=== PATIENT | female | born 1980 | race Two or more races ===

== ENCOUNTER 2023-07-05 04:04 | Inpatient (IN) | payer OTHER ==
[2023-07-04 09:17] VITALS: BMI 30.2
[2023-07-05] MEDS ORDERED: SUGAMMADEX SODIUM 200 MG/2 ML VIAL ONE (10:01)
[2023-07-05] MEDS ORDERED: PROPOFOL 20 ML ONE (10:01)
[2023-07-05] MEDS ORDERED: FENTANYL CITRATE/PF 50 MCG/ML VIAL ONE ×4 (10:01→12:12)
[2023-07-05] MEDS ORDERED: ROCURONIUM BROMIDE 50 MG/5 ML SYRINGE ONE ×2 (10:02→11:44)
[2023-07-05] MEDS ORDERED: MIDAZOLAM HCL 2 MG/2 ML SINGLE DOSE VIAL ONE (10:02)
[2023-07-05] MEDS ORDERED: SODIUM CHLORIDE 0.9% P/F 10 ML VIAL IJ ONE (10:12)
[2023-07-05] MEDS ORDERED: DEXAMETHASONE SOD PHOSPHATE 4 MG/1 ML VIAL ONE ×2 (10:12→11:09)
[2023-07-05] MEDS ORDERED: CLINDAMYCIN 900 MG PREMIX BAG IVPB ONE (10:48)
[2023-07-05] MEDS ORDERED: CLINDAMYCIN 600MG PREMIX IVPB 1,200 MG/100 ML BAG IVPB ONE (11:03)
[2023-07-05] MEDS ORDERED: HYDROmorphone HCl 2 MG/ML VIAL ONE (11:05)
[2023-07-05] MEDS ORDERED: ONDANSETRON 4 MG/2 ML VIAL ONE (11:09)
[2023-07-05] MEDS: ACETAMINOPHEN 1000 MG/100 ML BAG IVPB ONE ×2 (12:15→15:05)
[2023-07-05] MEDS: KETOROLAC TROMETHAMINE 30 MG/1 ML VIAL IVPUSH ONE (12:15)
[2023-07-05] MEDS ORDERED: ONDANSETRON 4 MG/2 ML VIAL IVPUSH PRN ×2 (12:17→12:24)
[2023-07-05] MEDS ORDERED: oxyCODONE HCL 5 MG TABLET PO PRN (12:26)
[2023-07-05] MEDS ORDERED: HYDROmorphone *PCA* 10MG/50ML DISP.SYRIN PCA SCH (12:30)
[2023-07-05] MEDS ORDERED: CLINDAMYCIN 600MG PREMIX IVPB 600 MG/50 ML BAG IVPB ONE (14:17)
[2023-07-05 15:00] VITALS: RESP 18
[2023-07-05] MEDS: CLINDAMYCIN 900 MG PREMIX IVPB 900 MG/50 ML BAG IVPB SCH ×2 (15:23→21:36)
[2023-07-05] MEDS: IBUPROFEN 800 MG/8 ML IJ IVPB PRN (19:55)
[2023-07-05] MEDS: LOSARTAN POTASSIUM 50 MG TABLET PO SCH (23:16)
[2023-07-06] MEDS: CLINDAMYCIN 900 MG PREMIX IVPB 900 MG/50 ML BAG IVPB SCH ×2 (02:21→10:26)
[2023-07-06 08:39] LABS: POTASSIUM 3.7 mmol/L (3.5-5.1)
[2023-07-06 08:43] LABS: CALCIUM 8.5 mg/dL (8.5-10.1)
[2023-07-06 08:44] LABS: BLOOD UREA NITROGEN 10.4 mg/dL (7-18)
[2023-07-06 08:45] LABS: HEMATOCRIT 34.2 % (32.4-45.2); HEMOGLOBIN 11.5 GM/dL (10.7-15.3); MCH 27.9 pg (25.7-33.7); MCHC 33.5 g/dl (32.0-36.0); MEAN CELL VOLUME 83.4 fl (80-96); MEAN PLT VOLUME 8.7 fl (7.5-11.1); PLATELET COUNT 218 10^3/uL (134-434); RDW 15.6 % (11.6-15.6); WHITE BLOOD COUNT 20.1 K/mm3 (4.0-10.0)
[2023-07-06 08:47] LABS: CREATININE 0.8 mg/dL (0.55-1.3)
[2023-07-06] MEDS: TOPIRAMATE 25 MG TABLET PO SCH (09:50)
[2023-07-06] MEDS: ENOXAPARIN NA (PORCINE) 40 MG/0.4 ML DISP.SYRIN SQ SCH (09:50)
[2023-07-06] MEDS: IBUPROFEN 800 MG/8 ML IJ IVPB PRN (12:41)
[2023-07-06] MEDS: oxyCODONE HCL 5 MG TABLET PO PRN (15:31)
[2023-07-06] MEDS: LOSARTAN POTASSIUM 50 MG TABLET PO SCH (21:21)
[2023-07-06] MEDS: IBUPROFEN 600 MG TABLET (FP) PO PRN (21:21)
[2023-07-06] MEDS ORDERED: QUEtiapine FUMARATE 100 MG TABLET (FP) PO SCH (22:00)
[2023-07-06] MEDS ORDERED: DULoxetine HCL 20 MG CAPSULE.DR PO SCH (22:00)
[2023-07-07] MEDS: IBUPROFEN 600 MG TABLET (FP) PO PRN (05:57)
[2023-07-07] MEDS: oxyCODONE HCL 5 MG TABLET PO PRN (08:48)
[2023-07-07 09:17] LABS: BASO % 0.2 % (0-2.0); EOS % 0.9 % (0-4.5); HEMOGLOBIN 11.3 GM/dL (10.7-15.3); LYMPH % 22.6 % (8-40); MCH 28.7 pg (25.7-33.7); MCHC 34.2 g/dl (32.0-36.0); MEAN PLT VOLUME 8.8 fl (7.5-11.1); MONO % 10.9 % (3.8-10.2); NEUT % 65.4 % (42.8-82.8); PLATELET COUNT 201 10^3/uL (134-434); RBC 3.93 M/mm3 (3.60-5.2); RDW 15.7 % (11.6-15.6)
[2023-07-07 09:30] VITALS: BP 114/80; PULSE 99; TEMP 97.8
[2023-07-07] MEDS: TOPIRAMATE 25 MG TABLET PO SCH (09:42)
[2023-07-07] MEDS: ENOXAPARIN NA (PORCINE) 40 MG/0.4 ML DISP.SYRIN SQ SCH (09:42)
[2023-07-07] MEDS: ELECTROLYTE-148 SOLN 1,000 ML IV SCH (10:12)
[2023-07-07] MEDS: LACTATED RINGERS SOLUTION 1,000 ML IV SCH (10:12)
[2023-07-07] MEDS: KETOROLAC TROMETHAMINE 30 MG/1 ML VIAL IVPUSH ONE (10:12)
== END 2023-07-07 11:11 | disposition home or self-care (01) | DRG 513 ==
LOC: J2C 04:04 → J3W 14:39
PROVIDERS: ADMIT Obstetrics & Gynecology; ATTEND Obstetrics & Gynecology
PROC: 0UT70ZZ Resection of Bilateral Fallopian Tubes, Open Approach (ICD-10-PCS; 2023-07-05)
PROC: 0UT90ZL Resection of Uterus, Supracervical, Open Approach (ICD-10-PCS; principal; 2023-07-05 10:00)
DX: N80.03 Adenomyosis of the uterus (principal); N92.1 Excessive and frequent menstruation with irregular cycle; R10.2 Pelvic and perineal pain; K66.0 Peritoneal adhesions (postprocedural) (postinfection)
CPT/HCPCS: 36415; 80048; 81025; 85025; 85027; 86850; 86900; 86901; 94010; 94760